=== PATIENT | female | born 1965 | race Caucasian/White ===

== ENCOUNTER 2021-11-07 18:53 | Emergency (ER) | payer MEDICAID ==
[~2021-11-07] VITALS: Ht 149.9 cm; Wt 56.4 kg
--- NOTE | 2021-11-07 19:30 | NUR ---
TO ER BED 11. BIBS C/O LEFT SIDED CHEST PAIN 02/16 ON P/S. SINCE YESTERDAY. WORSE WITH COUGH. DID NOT TAKE ANYTHING FOR PAIN. DENIES ANY N/V. CONNECTED TO MONITOR. VSS. AWAITING MD AMBROCIO
--- NOTE | 2021-11-07 19:32 | NUR ---
instrument repair technician at pt's bedside
--- NOTE | 2021-11-07 19:44 | NUR ---
DIRECTOR CLINICAL DATA AT PT'S BEDSIDE
[2021-11-07 19:55] LABS: BASOPHILS % (AUTO) 0.4 % (0.0-2.0); EOSINOPHILS % (AUTO) 2.3 % (0.0-6.0); HEMATOCRIT 43 % (33-45); HEMOGLOBIN 14.6 g/dL (11.5-14.8); LYMPHOCYTES # (AUTO) 1.7 K/uL (0.8-4.8); LYMPHOCYTES % (AUTO) 33.5 % (20.0-44.0); MEAN CORPUSCULAR HGB CONC 34 g/dl (31.0-36.0); MEAN CORPUSCULAR VOLUME 90 fL (82-100); MONOCYTES # (AUTO) 0.4 K/uL (0.1-1.30); MONOCYTES % (AUTO) 7.3 % (2.0-12.0); NEUTROPHILS # (AUTO) 2.8 K/uL (1.8-8.9); NEUTROPHILS % (AUTO) 56.5 % (43.0-81.0); PLATELET COUNT (AUTO) 269 K/uL (150-450); RED BLOOD CELL COUNT(AUTO) 4.85 MIL/uL (4.0-5.2); WHITE BLOOD COUNT (AUTO) 4.9 K/uL (4.3-11.0)
--- NOTE | 2021-11-07 19:59 | NUR ---
IV LINE ESTABLISHED , RAC 20G
[2021-11-07 20:02] LABS: CALCIUM, SERUM 9.2 mg/dL (8.5-10.1); CARBON DIOXIDE 28 mmol/L (21-32); CHLORIDE 106 mmol/L (98-107); CREATININE 0.6 mg/dL (0.6-1.3); GLUCOSE 100 mg/dL (74-106); POTASSIUM 4.6 mmol/L (3.5-5.1); SODIUM SERUM 144 mmol/L (136-145); UREA NITROGEN, BLOOD 21 mg/dL (7-18)
[2021-11-07] MEDS ORDERED: KETOROLAC TROMETHAMINE INJ 30 MG/ML VIAL ONE (21:09)
[2021-11-07] MEDS ORDERED: KETOROLAC TROMETHAMINE INJ 30 MG/ML VIAL IV ONE (21:30)
--- NOTE | 2021-11-07 21:53 | NUR ---
ILLUMINATOR AT PT'S BEDSIDE.
--- NOTE | 2021-11-07 23:00 | NUR ---
IV removed. Catheter intact and site benign. Pressure and 4x4 applied to site. No bleeding noted.
--- NOTE | 2021-11-07 23:06 | NUR ---
Patient discharged to home in stable condition. Written and verbal after care instructions given. Patient verbalizes understanding of instruction.
[2021-11-07 23:32] VITALS: BP 125/70
== END 2021-11-07 23:32 | disposition home or self-care (01) ==
LOC: ER 19:42
DX: R07.89 Other chest pain (principal)
CPT/HCPCS: 36415; 71045; 80048; 84484 ×2; 85025; 93005 ×2; 96374; 99285; J1885